=== PATIENT | female | born 2000 | race Caucasian/White ===

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

== ENCOUNTER → 2021-04-04 15:30 | Outpatient (BNVA) | payer BC, SELFPAY | PROVIDERS: Family Provider Nurse Practitioner Family; PCP Nurse Practitioner Family; Visit Provider Nurse Practitioner Family | DX: Z20.822 Contact with and (suspected) exposure to COVID-19 (principal) | CPT/HCPCS: 87635 ==

== ENCOUNTER → 2022-05-16 13:06 | Outpatient (BNVA) | payer BC, MEDICAID, SELFPAY | PROVIDERS: Family Provider Nurse Practitioner Family; Visit Provider Emergency Medicine | DX: S69.91XA Unspecified injury of right wrist, hand and finger(s), initial encounter (principal); X58.XXXA Exposure to other specified factors, initial encounter | CPT/HCPCS: 73120 ==

== ENCOUNTER 2023-12-06 05:24 | Day surgery (SDC) | payer BC, MEDICAID, SELFPAY ==
--- NOTE | 2023-12-05 22:38 | W.PM.OPSFHP ---
Same Day Surgery H&P Indication for Procedure/HPI DATE OF PROCEDURE: December 05, 2023 CHIEF COMPLAINT/INDICATIONFOR SURGICAL PROCEDURE: desires permanent sterilization PREOP DIAGNOSIS: desires permanent sterilization PLANNED PROCEDURE: Operation Date: 12/06/23 07:00 Proposed Procedures p Laparoscopic bilateral partial salpingectomy 93458 Z30.2(Bilateral) - Akhil Scott MD 23 y.o. Wants permanent sterilization h/o x two now scheduled for laparoscopic bilateral partial salpingectomy Medications/Allergies* Home Medications Medication Instructions Recorded Confirmed Type lamotrigine 100 mg tablet 100 mg PO BID 05/25/20 12/05/23 History (Lamictal) inulin 2 gram chewable tablet 2 g PO DAILY 10/09/23 12/05/23 History (Fiber Gummies) citalopram 40 mg tablet 40 mg PO DAILY 12/05/23 12/05/23 History sumatriptan succinate 50 mg tablet 50 mg PO Q2H PRN Headache 12/05/23 12/05/23 History Allergies/Adverse Reactions Allergy/AdvReac Type Severity Reaction Status Date / Time No Known Allergies Allergy Verified 12/05/23 12:47 Pertinent History/Comorbid Conditions* Medical History (Updated 10/20/23 @ 11:10 by Akhil Scott MD) Constipation Family History (Updated 10/09/23 @ 12:46 by Cheri Tripathi LPN) Diabetes Hypercholesteremia Denies family history of Colon cancer Ovarian cancer Prostate cancer Heart disease Breast cancer Hypertension Uterine cancer Thyroid disease Stroke Pertinent Exam Findings alert, oriented x 3, clear to auscultation bilaterally and regular rate & rhythm Recommendations Surgery/Procedure today Coding Level of Care Code Acute Code for Chg Fwd Time Spent (min) 20
[2023-12-06] VITALS (12 sets, daily range): BP systolic 108–133; BP diastolic 64–91; PULSE 53–72; RESP 12–18; TEMP 36.2–36.8; O2SAT 94–100; BMI 32.9
[2023-12-06] MEDS: sodium chloride 0.9% 1,000 ML 30 ML IV (06:35)
--- NOTE | 2023-12-06 06:38 | ANES.PREANE2 ---
Pre-Anesthetic Assessment Height/Weight: Height 1.8 m Weight 107.048 kg Temp Pulse Resp BP Pulse Ox O2 Del Method 97.9 F 72 16 127/82 100 Room Air 12/06/23 06:08 12/06/23 06:08 12/06/23 06:08 12/06/23 06:08 12/06/23 06:08 12/06/23 06:08 Preop Diagnosis: desires permanent sterilization Operation Date: 12/06/23 07:00 Proposed Procedures p Laparoscopic bilateral partial salpingectomy 52495 Z30.2(Bilateral) - Akhil Scott MD Familial anesthetic complications: None Was Beta Rob taken within 24 hours: N/A Was Clonidine taken within 24 hours: N/A Last intake: Intake Last Liquid Date 12/05/23 Last Liquid Time 21:00 Last Solid Date 12/05/23 Last Solid Time 20:00 Social Tobacco (vapes) and No alcohol Exam alert, oriented x 3, clear to auscultation bilaterally and regular rate & rhythm Airway Mallampati: Class I Dentition: chipped Anesthetic Plan ASA status: 1 Anesthesia: General Risk of > 500 ml blood loss (7ml/kg in children): No Medications/Allergies Home Medications Medication Instructions Recorded Confirmed Last Taken Type lamotrigine 100 mg tablet 100 mg PO BID 05/25/20 12/06/23 Unknown History (Lamictal) inulin 2 gram chewable tablet 2 g PO DAILY 10/09/23 12/06/23 12/05/23 History (Fiber Gummies) citalopram 40 mg tablet 40 mg PO DAILY 12/05/23 12/06/23 12/05/23 History sumatriptan succinate 50 mg tablet 50 mg PO Q2H PRN Headache 12/05/23 12/06/23 Unknown History Allergies Allergy/AdvReac Type Severity Reaction Status Date / Time No Known Allergies Allergy Verified 12/06/23 05:59 PFSH Anesthesia Medical History Constipation Family History Other Diabetes Hypercholesteremia Denies family history of Colon cancer Ovarian cancer Prostate cancer Heart disease Breast cancer Hypertension Uterine cancer Thyroid disease Stroke Female Reproductive History Spontaneous abortions: No Data Anesthesia Cardiac Studies: No Data to Display
--- NOTE | 2023-12-06 06:54 | W.PM.OPSUD ---
Surgery/Procedure H&P Update DATE OF PROCEDURE: December 06, 2023 DATE H&P PERFORMED: 12/05/23 H&P UPDATE INFORMATION: I have reviewed H&P completed within last 30 days and I have examined patient prior to procedure PREOP DIAGNOSIS: desires permanent sterilization PLANNED PROCEDURE: Operation Date: 12/06/23 07:00 Proposed Procedures p Laparoscopic bilateral partial salpingectomy 39941 Z30.2(Bilateral) - Akhil Scott MD
--- NOTE | 2023-12-06 08:35 | P.OP_ITS ---
Operative Report Date of procedure: December 06, 2023 Pre-op diagnosis: desires permanent sterilization Post-op diagnosis: same Procedure done: laparoscopic bilateral partial salpingectomy Implants: none Specimens removed/disposition: bilateral partial fallopian tube segments Surgeon: Akhil Scott MD Anesthesia: General Estimated blood loss (mL): 0 Complications: none Findings: normal uterus, tubes, and ovaries Condition: stable Disposition: PACU Brief History: 23 y.o. desires permanent sterilization Procedure: Informed consent was obtained. The patient was taken to the OR and placed on the table. General endotracheal anesthesia was induced. The patient was then placed in dorsolithotomy position. The abdomen and perineum were then prepped and draped in the usual fashion. A 5 mm subumbilical skin incision was made. A 5 mm trocar with sheath was then inserted into the peritoneal cavity under direct visualization with the laparoscope. After confirming intraperitoneal position, pneumoperitoneum was achieved. Two separate 5 mm incisions were made in the right and left mid- quadrants. 5 mm trocars with sheaths were then inserted into the peritoneal cavity under direct visualization with the laparoscope. The right fallopian tube was then identified to its fimbrial end. Starting at the fimbrial end, the mesosalpinx was then coagulated and cut using the Ligasure device. A 3-4 cm portion of the right fallopian tube was excised and removed via one of the ports. This was sent to pathology. There was no bleeding seen. Similarly, the left fallopian tube was identified to its fimbrial end. A 3-4 cm portion of the left fallopian tube was excised and removed, sent to pathology. There was no bleeding. All instruments were then removed from the peritoneal cavity after the pneumoperitoneum was allowed to escape. The skin incisions were closed using 4- O Monocryl in subcuticular fashion. Dermabond was applied. The patient was then placed supine and awakened, taken the the PACU in good condition.
[2023-12-06] MEDS: oxyCODONE-APAP 5-325 mg Tablet 1 TAB PO (08:56)
--- NOTE | 2023-12-06 09:10 | ANE.PACU2 ---
Inpatient post-anesthesia follow up: Airway intact: Yes Vital signs: Temperature 98.3 F Pulse Rate 55 Respiratory Rate 18 Blood Pressure 122/91 Pulse Oximetry 100 Oxygen Delivery Me thod Room Air Oxygen Flow Rate 6 Fraction of Inspir ed Oxygen Hydration adequate: Yes Nausea and vomiting: No Pain level: 1 Mental status: Baseline
== END 2023-12-06 09:10 | disposition home or self-care (01) ==
PROVIDERS: PCP Nurse Practitioner Family; Visit Provider Obstetrics & Gynecology
PROC: (CPT 58661; principal; 2023-12-06 07:00)
DX: Z30.2 Encounter for sterilization (principal)
CPT/HCPCS: 58661; 81025; 88302; J1100; J2250; J2405; J2704; J2710; J3010; J3490; J7030